=== PATIENT | male | born 1995 | race Hispanic/Latino ===

== ENCOUNTER 2024-06-27 20:10 | Emergency (ER) | payer SELFPAY ==
[2024-06-27] MEDS ORDERED: CEFTRIAXONE 1000 MG/VIAL ONE (22:06)
[2024-06-27] MEDS ORDERED: AZITHROMYCIN 1 GM PACKET ONE (22:07)
--- NOTE | 2024-06-27 22:15 | EDPHYS ---
Physician Documentation [facility] Name: Stef Townsend Age: 28 yrs Sex: Male : 1995 Arrival Date: 06/27/2024 Time: 20:10 Bed 18 Private MD: ED Physician Min Blue HPI: 06/27 21:50 This 28 yrs old Male presents to ER via Ambulatory with complaints of Penile cp Discharge, pt said he is having male problems. 21:50 The patient presents with symptoms include penile discharge. Onset: The cp symptoms/episode began/occurred today. Associated signs and symptoms: Pertinent negatives: fever, rash, abdominal pain, testicular pain. Severity of symptoms: in the emergency department the symptoms are unchanged, despite home interventions. 21:50 Patient reports having unprotected intercourse with new partner and having an STD in cp the past. Denies any burning with urination like previously. Historical: - Allergies: 20:52 No Known Allergies; cm10 - Home Meds: 20:52 None [Active]; cm10 - PMHx: 20:52 None; cm10 - PSHx: 20:52 None; cm10 - Immunization history:: Adult Immunizations up to date. - Infectious Disease History:: Denies. - Social history:: Smoking status: Patient denies any tobacco usage or history of. ROS: 21:55 : Positive for penile discharge, Negative for hematuria, burning with urination, cp testicular pain 21:55 Eyes: Negative for injury, pain, redness, and discharge, cp 21:55 Constitutional: Negative for body aches, chills, fever, poor PO intake, 21:55 Respiratory: Negative for cough, shortness of breath, wheezing, 21:55 Abdomen/GI: Negative for abdominal pain, nausea, vomiting, and diarrhea, 21:55 All other systems are negative, Exam: 21:57 Constitutional: The patient appears in no acute distress, alert, awake, comfortable, cp non-toxic, well developed, well nourished, 21:57 Head/Face: Normocephalic, atraumatic. cp 21:57 Chest/axilla: Inspection: normal, 21:57 Cardiovascular: Rate: normal, Rhythm: regular, 21:57 Respiratory: the patient does not display signs of respiratory distress, Respirations: normal, no use of accessory muscles, no retractions, labored breathing, is not present, Breath sounds: are clear throughout, no decreased breath sounds, 21:57 Abdomen/GI: Exam negative for discomfort, distension, guarding, Inspection: abdomen appears normal, 21:57 Back: pain, is absent, ROM is normal, 21:57 Neuro: Orientation: to person, place \T\ time. Mentation: is normal, Vital Signs: 20:50 BP 133 / 72; Pulse 78; Resp 18; Temp 98.2(O); Pulse Ox 98% on R/A; Weight 68.04 kg; cm10 Height 5 ft. 8 in. ; Pain 0/10; 21:30 BP 126 / 58; Pulse 78; Resp 18; Temp 98; Pulse Ox 100% ; Weight 68.04 kg; Height 5 ft. kj2 8 in. ; 22:34 BP 124 / 64; Pulse 76; Resp 18; Temp 98; Pulse Ox 100% on R/A; kj2 21:30 Body Mass Index 22.81 (68.04 kg, 172.72 cm) kj2 20:50 Pain Scale: Adult cm10 MDM: 20:55 Medical Screening Exam initiated cp 22:00 Differential diagnosis: UTI, prostatitis, urethritis, sexually transmitted disease. 22:13 Data reviewed: vital signs, nurses notes, lab test result(s), and as a result, I will cp discharge patient. 22:13 I considered the following discharge prescriptions or medication management in the emergency department Medications were administered in the Emergency Department. See MAR. Counseling: I had a detailed discussion with the patient and/or guardian regarding the historical points, exam findings, and any diagnostic results supporting the discharge/admit diagnosis, to return to the emergency department if symptoms worsen or persist or if there are any questions or concerns that arise at home. 06/27 20:55 Order name: Urinalysis w/ reflexes cp 06/27 20:55 Order name: GC (Angel/Chl) Probe URINE cp Administered Medications: 22:17 Drug: Rocephin (cefTRIAXone) IM 1 grams IM once Route: IM; Site: left gluteus; kj2 22:43 Follow up: Response: No adverse reaction kj2 22:17 Drug: AZITHromycin PO 1 grams PO once Route: PO; kj2 22:42 Follow up: Response: No adverse reaction kj2 Disposition Summary: 06/27/24 22:14 Discharge Ordered Notes: Location: Home cp Problem: new cp Symptoms: have improved cp Condition: Stable cp Diagnosis - Encounter for screening for infections with a predominantly sexual mode of cp transmission Followup: cp - With: Private Physician - When: 2 - 3 days - Reason: Worsening of condition Discharge Instructions: - Discharge Summary Sheet cp - Health Maintenance, Male cp - Preventing Sexually Transmitted Infections, Adult cp Forms: - Medication Reconciliation Form cp - Antibiotic Education cp - Prescription Opioid Use cp - Patient Portal Instructions cp - Leadership Thank You Letter cp Prescriptions: - Doxycycline Monohydrate 100 mg Oral Tablet - take 1 tablet ORAL route every 12 hours for 10 days; 20 tablet; Refills: 0, cp Product Selection Permitted Addendum: 06/30/2024 12:53 Co-signature as Attending Physician, Min Blue MD I reviewed the patient's care r n provided by the Advanced Practice Provider and agree with the diagnosis and treatment plan. Signatures: Dispatcher [employer] EDMS Min Blue MD MD rn Boo Washburn PA PA cp Gracia Duarte RN RN cm10 Naz Irwin RN RN kj2 Corrections: (The following items were deleted from the chart) 06/27 20:56 20:56 Urinalysis+U.LAB.BRZ ordered. EDMS EDMS 20:56 20:56 GC (Angel/Chl) Probe URINE+R.LAB.BRZ ordered. EDMS EDMS
--- NOTE | 2024-06-27 22:15 | ER ---
Nurse's Notes [facility] Name: Stef Townsend Age: 28 yrs Sex: Male : 1995 Arrival Date: 06/27/2024 Time: 20:10 Bed 18 Private MD: Diagnosis: Encounter for screening for infections with a predominantly sexual mode of transmission Presentation: 06/27 20:50 Chief complaint: Patient states: HAVING A BURNING SENSATION WITH URINATION LAST NIGHT cm10 AND TODAY STARTED HAVING DISCHARGE FROM [facility]. PT REPORTS HAVING UNPROTECTED SEX LESS THAN 1 WEEK AGO. Coronavirus screen: Client denies travel out of the [place] in the last 14 days. Ebola Screen: Patient denies travel to an Ebola-affected area in the 21 days before illness onset. No symptoms or risks identified at this time. Initial Sepsis Screen: Does the patient meet any 2 criteria? No. Patient's initial sepsis screen is negative. Does the patient have a suspected source of infection? No. Patient's initial sepsis screen is negative. Risk Assessment: Do you want to hurt yourself or someone else? Patient reports no desire to harm self or others. Onset of symptoms was June 26, 2024. 20:50 Method Of Arrival: Ambulatory cm10 20:50 Acuity: OSIRIS 4 cm10 Triage Assessment: 20:52 General: Appears in no apparent distress. comfortable, Behavior is calm, cooperative. cm10 Neuro: No deficits noted. Level of Consciousness is awake, alert, obeys commands, Oriented to person, place, time, situation, Appropriate for age. Respiratory: No deficits noted. Airway is patent Respiratory effort is even, unlabored, Respiratory pattern is regular, symmetrical. : Reports burning with urination, discharge, from penis that is. Historical: - Allergies: 20:52 No Known Allergies; cm10 - Home Meds: 20:52 None [Active]; cm10 - PMHx: 20:52 None; cm10 - PSHx: 20:52 None; cm10 - Immunization history:: Adult Immunizations up to date. - Infectious Disease History:: Denies. - Social history:: Smoking status: Patient denies any tobacco usage or history of. Screenin:30 [facility] ED Fall Risk Assessment (Adult) History of falling in the last 3 months, kj2 including since admission No falls in past 3 months (0 pts) Confusion or Disorientation No (0 pts) Intoxicated or Sedated No (0 pts) Impaired Gait No (0 pts) Mobility Assist Device Used No (0 pt) Altered Elimination No (0 pt) Score/Fall Risk Level 0 - 2 = Low Risk Maintained a safe environment, Hourly rounding (assess needs \T\ fall precautionary measures) done. Abuse screen: Denies threats or abuse. Denies injuries from another. Nutritional screening: No deficits noted. Tuberculosis screening: No symptoms or risk factors identified. Assessment: 21:30 General: Appears in no apparent distress. Behavior is calm, cooperative. Pain: Denies kj2 pain. Neuro: Level of Consciousness is awake, alert, obeys commands. Cardiovascular: Patient's skin is warm and dry. Respiratory: Airway is patent Respiratory effort is even, unlabored. GI: No signs and/or symptoms were reported involving the gastrointestinal system. : Reports discharge, from penis that is. 22:22 Reassessment: Patient appears in no apparent distress at this time. Patient and/or kj2 family updated on plan of care and expected duration. Pain level reassessed. Patient is alert, oriented x 3, equal unlabored respirations, skin warm/dry/pink. 22:34 Reassessment: Patient appears in no apparent distress at this time. Patient and/or kj2 family updated on plan of care and expected duration. Pain level reassessed. Patient is alert, oriented x 3, equal unlabored respirations, skin warm/dry/pink. Vital Signs: 20:50 BP 133 / 72; Pulse 78; Resp 18; Temp 98.2(O); Pulse Ox 98% on R/A; Weight 68.04 kg; cm10 Height 5 ft. 8 in. ; Pain 0/10; 21:30 BP 126 / 58; Pulse 78; Resp 18; Temp 98; Pulse Ox 100% ; Weight 68.04 kg; Height 5 ft. kj2 8 in. ; 22:34 BP 124 / 64; Pulse 76; Resp 18; Temp 98; Pulse Ox 100% on R/A; kj2 21:30 Body Mass Index 22.81 (68.04 kg, 172.72 cm) kj2 20:50 Pain Scale: Adult cm10 ED Course: 20:21 Patient arrived in ED. gm2 20:22 Boo Washburn PA is PHCP. cp 20:22 Min Blue MD is Attending Physician. cp 20:52 Triage completed. cm10 20:53 Arm band placed on right wrist. Patient placed in waiting room. cm10 21:30 Patient has correct armband on for positive identification. Bed in low position. Call kj2 light in reach. Provided Education on: call light. 21:51 Naz Irwin, RN is Primary Nurse. kj2 22:17 Urinalysis w/ reflexes Sent. kj2 22:22 GC (Angel/Chl) Probe URINE Sent. kj2 22:35 No provider procedures requiring assistance completed. Patient did not have IV access kj2 during this emergency room visit. 22:43 GC (Angel/Chl) Probe URINE Sent. kj2 Administered Medications: 22:17 Drug: Rocephin (cefTRIAXone) IM 1 grams IM once Route: IM; Site: left gluteus; kj2 22:43 Follow up: Response: No adverse reaction kj2 22:17 Drug: AZITHromycin PO 1 grams PO once Route: PO; kj2 22:42 Follow up: Response: No adverse reaction kj2 Medication: 21:55 VIS not applicable for this client. kj2 Outcome: 22:14 Discharge ordered by MD. cp 22:35 Discharged to home ambulatory, kj2 22:35 Condition: stable 22:35 Discharge instructions given to patient, Instructed on discharge instructions, follow up and referral plans. 22:44 Patient left the ED. kj2 Signatures: Boo Washburn PA PA Gracia Rodriguez, RN RN cm10 Kyara Butler gm2 Naz Irwin RN RN kj2 Corrections: (The following items were deleted from the chart) 20:52 20:50 Chief complaint: Patient states: HAVING A BURNING SENSATION WITH URINATION LAST cm10 NIGHT AND TODAY STARTED HAVING DISCHARGE FROM [facility]. PT REPORTS HAVING UNPROTECTED SEX LESS THAN 1 WEEK AGO. cm10
[2024-06-27 22:42] LABS: Specific Gravity 1.018 (1.005-1.030); Urine Bilirubin NEGATIVE (Negative); Urine Blood Negative (Negative); Urine Clarity Clear (Clear); Urine Color Light-Yellow (Yellow); Urine Glucose NEGATIVE (Negative); Urine Ketones NEGATIVE (Negative); Urine Microscopic Reflex YN NO UMIC; Urine Nitrite NEGATIVE (Negative); Urine Protein NEGATIVE (Negative); Urine Urobilinogen Normal (Normal); Urine pH 5.5 (5.0-7.0)
[2024-06-28 00:34] VITALS: BP 124/64; TEMP 98; O2SAT 100
== END 2024-06-27 22:44 | disposition home or self-care (01) ==
LOC: ER 20:10
DX: Z11.3 Encounter for screening for infections with a predominantly sexual mode of transmission (principal)
CPT/HCPCS: 81003; 87490; 87590; 96372; 99284; J0696